=== PATIENT | female | born 1990 | race American Indian/Alaskan Native ===

== ENCOUNTER 2022-06-11 18:27 | Emergency (ER) | payer MEDICAID | END 2022-06-11 19:40 | disposition home or self-care (01) | LOC: FB.ED 18:27 | DX: S60.052A Contusion of left little finger without damage to nail, initial encounter (principal); W23.1XXA Caught, crushed, jammed, or pinched between stationary objects, initial encounter | CPT/HCPCS: 73130-LT; 99282; 99283 ==